=== PATIENT | female | born 1975 | race Hispanic/Latino ===

== ENCOUNTER 2025-05-10 11:01 | Emergency (ER) | payer OTHER ==
[2025-05-10] MEDS ORDERED: Ondansetron PF 4 MG/2 ML Vial ONE (11:11)
[2025-05-10] MEDS ORDERED: Lidocaine 1% (PF) 30 ML VIAL ONE (11:22)
[2025-05-10] MEDS ORDERED: Boostrix 0.5 ML (Tdap) VIAL (>/=7 yrs of age) ONE (11:22)
[2025-05-10] MEDS ORDERED: CEFAZOLIN 1 GM VIAL ONE (11:22)
[2025-05-10 11:23] LABS: INR-International Normal Ratio 1.0; Prothrombin Time 13.2 sec (12.0-14.7)
[2025-05-10 11:24] LABS: PTT 27.5 sec (22.9-36.1)
[2025-05-10 11:32] LABS: %Eosinophils 1.0 % (0.0-10.0); %Lymphocytes 33.2 % (21.0-51.0); %Monocytes 4.5 % (0.0-10.0); %Neutrophils 60.7 % (42.0-75.0); Hematocrit 45.7 % (36.0-47.0); Hemoglobin 15.1 g/dL (12.0-16.0); Mean Corpuscular Hemoglobin 26.2 pg (27.0-31.0); Mean Corpuscular Volume 79.1 fl (78.0-98.0); Platelet Count 388 10x3/uL (130-400); Red Blood Cell (RBC) Count 5.77 mill/uL (4.20-5.40); White Blood Cell (WBC) Count 9.7 10x3/uL (4.8-10.8)
[2025-05-10 11:33] LABS: #Basophils 0.1 thou/uL (0.0-0.2); #Eosinophils 0.1 thou/uL (0.0-0.7); #Lymphocytes 3.2 thou/uL (1.20-3.40); #Monocytes 0.4 thou/uL (0.11-0.59); #Neutrophils 5.9 thou/uL (1.40-6.50); %Basophils 0.6 % (0.0-1.0)
[2025-05-10 11:50] LABS: Anion Gap 19 mmol/L (10-20); BUN (Urea Nitrogen) 10 mg/dL (9.8-20.1); Calc. Creatinine Clearance 0 mL/min (70-130); Carbon Dioxide 22 mmol/L (22-29); Chloride 104 mmol/L (98-107); Potassium 4.0 mmol/L (3.5-5.1); Sodium 141 mmol/L (136-145)
[2025-05-10 11:51] LABS: ALT (SGPT) 21 U/L (Less than 34); AST (SGOT) 28 U/L (11-34); Albumin 4.9 g/dL (3.1-4.5); Alkaline Phosphatase 107 U/L (40-110); Bilirubin, Total 0.5 mg/dL (0.3-1.2); Calcium 9.8 mg/dL (7.6-10.4); Globulin 3.4 g/dL (2.4-3.5); Glucose 136 mg/dL (70-105)
== END 2025-05-10 12:47 | disposition short-term general hospital (02) ==
LOC: NAV ERS 11:01
DX: S63.277A Dislocation of unspecified interphalangeal joint of left little finger, initial encounter (principal); Z23 Encounter for immunization; X50.1XXA Overexertion from prolonged static or awkward postures, initial encounter; Y93.89 Activity, other specified
CPT/HCPCS: 26770; 80053; 83605; 85025; 85610; 85730; 90471; 90715; 94760; 96365; 96375; J0690